=== PATIENT | female | born 1985 | race African-American/Black ===

== ENCOUNTER 2017-12-26 08:42 | Inpatient (IN) | payer SELFPAY ==
[2017-12-26 09:41] LABS: ADD MAN DIFF? NO
[2017-12-26 09:47] LABS: WHITE BLOOD COUNT 7.1 10^3/ul (4.8-10.8)
[2017-12-26 09:47] LABS: BASOPHILS % 0.3 % (0.0-2.0); EOSINOPHILS # 0.1 10^3/ul (0.0-0.5); EOSINOPHILS % 0.8 % (0.0-7.0); HEMATOCRIT 34.6 % (37.0-47.0); HEMOGLOBIN 11.9 g/dl (12.0-16.0); LYMPHOCYTES # 1.3 10^3/ul (0.8-2.9); LYMPHOCYTES % 18.9 % (15.0-51.0); MEAN CORPUSCULAR HEMOGLOBIN 29.8 pg (29.0-33.0); MEAN CORPUSCULAR HGB CONC 34.4 g/dl (32.0-37.0); MEAN CORPUSCULAR VOLUME 86.5 fl (82.0-101.0); MEAN PLATELET VOLUME 10.6 fl (7.4-10.4); MONOCYTE # 0.7 10^3/ul (0.3-0.9); MONOCYTES % 10.1 % (0.0-11.0); NEUTROPHIL # 4.9 10^3/ul (1.6-7.5); NEUTROPHILS % 69.3 % (39.0-77.0); PLATELET COUNT 147 10^3/UL (140-415); RED CELL DISTRIBUTION WIDTH 13.5 % (11.5-14.5)
[2017-12-26] MEDS ORDERED: OXYTOCIN 30 UNITS/LR 500 ML IV (10:00)
[2017-12-26] MEDS ORDERED: LIDOCAINE 1% (MPF) 30 ML INJ INJ (10:00)
[2017-12-26] MEDS ORDERED: MISOPROSTOL 200 MCG TAB PR (10:00)
[2017-12-26] MEDS ORDERED: METHYLERGONOVINE 0.2 MG INJ IM (10:00)
[2017-12-26] MEDS ORDERED: AMPICILLIN 2 GM/NS (PMX) 100 ML IV (10:00)
[2017-12-26] MEDS ORDERED: CARBOPROST 250 MCG INJ IM (10:00)
[2017-12-26 10:07] LABS: INR 0.93; PROTIME 12.5 Sec (11.9-14.9)
[2017-12-26] MEDS ORDERED: AMPICILLIN 1 GM/NS (PMX) 50 ML IV (13:00)
[2017-12-26] MEDS: LACTATED RINGER'S 1,000 ML IV ×4 (13:17→21:19)
[2017-12-26] MEDS: BUTORPHANOL 2 MG INJ IV (15:45)
[2017-12-26 16:50] LABS: RAPID PLASMA REAGIN NONREACTIVE (NR)
[2017-12-26] MEDS: OXYTOCIN 30 UNITS/LR 500 ML IV ×3 (18:53→23:28)
[2017-12-26] MEDS ORDERED: FENTAnyl 2MCG/ML-ROPIV 0.2% 100 ML (20:44)
[2017-12-26] MEDS ORDERED: HYDROmorphONE 0.5 MG/0.5 ML SYG IV ×2 (22:30)
[2017-12-26] MEDS ORDERED: FENTAnyl 2MCG/ML-ROPIV 0.2% 100 ML BAG EPI (22:30)
[2017-12-26] MEDS ORDERED: DIPHENHYDRAMINE 50 MG INJ IV (22:30)
[2017-12-26] MEDS ORDERED: KETOROLAC 30 MG INJ IV (22:30)
[2017-12-26] MEDS ORDERED: NALOXONE (0.4 MG/ML) INJ IV (22:30)
[2017-12-26] MEDS ORDERED: ONDANSETRON 4 MG INJ IV (22:30)
[2017-12-26] MEDS: MINERAL OIL LIGHT 10 ML VIAL TOP (22:50)
[2017-12-27] MEDS ORDERED: MISOPROSTOL 200 MCG TAB PR (00:30)
[2017-12-27] MEDS ORDERED: METHYLERGONOVINE 0.2 MG INJ IM (00:30)
[2017-12-27] MEDS ORDERED: CARBOPROST 250 MCG INJ IM (00:30)
[2017-12-27] MEDS ORDERED: OXYTOCIN 30 UNITS/LR 500 ML IV (00:30)
[2017-12-27] MEDS ORDERED: OXYCODONE/ASPIRIN (4.88/325) TAB PO (00:30)
[2017-12-27] MEDS: LACTATED RINGER'S 1,000 ML IV* ×3 (02:00→16:30)
[2017-12-27] MEDS: BENZOCAINE 20% 56 ML SPRAY TOP (04:10)
[2017-12-27] MEDS: LANOLIN 7 GM TUBE TOP (04:11)
[2017-12-27] MEDS: OXYTOCIN 30 UNITS/LR 500 ML IV ×2 (04:13→10:30)
[2017-12-27] MEDS: IBUPROFEN 600 MG TAB PO ×2 (05:17→12:00)
[2017-12-27] MEDS ORDERED: DIPHENHYDRAMINE 50 MG INJ (06:41)
[2017-12-27] MEDS: DIPHENHYDRAMINE 50 MG INJ IV (07:00)
[2017-12-27 11:21] LABS: RUBELLA ANTIBODY - IGG 2.89 index
[2017-12-27] MEDS: ACETAMINOPHEN 325 MG TAB PO (23:03)
[2017-12-28] MEDS: DIPHTH/TET/ACEL PERTUSS (ADULT) 0.5 ML VIAL IM* (09:00)
[2017-12-28 10:27] LABS: ADD MAN DIFF? NO
[2017-12-28 10:39] LABS: WHITE BLOOD COUNT 10.5 10^3/ul (4.8-10.8)
[2017-12-28 10:39] LABS: BASOPHILS % 0.3 % (0.0-2.0); EOSINOPHILS # 0.1 10^3/ul (0.0-0.5); EOSINOPHILS % 1.1 % (0.0-7.0); HEMATOCRIT 24.8 % (37.0-47.0); HEMOGLOBIN 8.3 g/dl (12.0-16.0); LYMPHOCYTES # 1.9 10^3/ul (0.8-2.9); MEAN CORPUSCULAR HEMOGLOBIN 29.4 pg (29.0-33.0); MEAN CORPUSCULAR HGB CONC 33.5 g/dl (32.0-37.0); MEAN CORPUSCULAR VOLUME 87.9 fl (82.0-101.0); MEAN PLATELET VOLUME 10.3 fl (7.4-10.4); MONOCYTE # 0.8 10^3/ul (0.3-0.9); NEUTROPHIL # 7.5 10^3/ul (1.6-7.5); NEUTROPHILS % 71.6 % (39.0-77.0); PLATELET COUNT 149 10^3/UL (140-415); RED BLOOD COUNT 2.82 10^6/ul (4.20-5.40); RED CELL DISTRIBUTION WIDTH 13.7 % (11.5-14.5)
[2017-12-28 12:02] LABS: RUBELLA ANTIBODY - IGM <20.00 AU/mL
== END 2017-12-28 17:23 | disposition home or self-care (01) | DRG 775 ==
LOC: OBT 08:42 → PP1 12-27 02:05 → L-D 08:43 → OBT 09:01 → L-D 08:59
PROVIDERS: Obstetrics & Gynecology
PROC: 10E0XZZ Delivery of Products of Conception, External Approach (ICD-10-PCS; principal; 2017-12-27)
PROC: 0KQM0ZZ Repair Perineum Muscle, Open Approach (ICD-10-PCS; 2017-12-27)
DX: O70.1 Second degree perineal laceration during delivery (principal); Z37.0 Single live birth; Z3A.39 39 weeks gestation of pregnancy
CPT/HCPCS: 62319; 85025; 85610; 85730; 86592; 86762; 86900; 86901